=== PATIENT | female | born 1965 | race Caucasian/White ===

== ENCOUNTER 2016-03-16 19:26 | Emergency (ER) | payer MEDICAID ==
[2015-11-30 05:29] VITALS: BMI 32.6
[~2016-03-16 19:26] MED LIST: ADIPEX-P37.5 M1 PO; AMBIEN10 MG PO; CELEXA40 MG PO; HYDROCODONE-APA1 TAB PO; LISINOPRIL-HCTZ1 T13 PO; PRINZIDE 20-251 TA1 PO; PROVENTIL/2.5 MG/3 M INH; PROZAC40 MG PO; XANAX0.5 MG PO
[2016-03-16 20:24] LABS: BASOPHILS 0.2 % (0.0-2.0); EOSINOPHILS 0.3 % (0-7); HEMATOCRIT 42.2 % (36.0-48.0); HEMOGLOBIN 13.3 g/dL (12-16); IMMATURE GRANULOCYTES 0.3 % (0-5); LYMPHOCYTES 13.3 % (15-50); MCH 26.9 pg (26.0-34.0); MCHC 31.5 g/dL (31.0-37.0); MCV 85.3 fL (80.0-100.0); MEAN PLATELET VOLUME 10.2 fL (7.4-10.4); NEUTROPHILS 81.9 % (40-80); PLATELET COUNT 457 10x3/uL (130-400); RBC 4.95 10x6/uL (4.00-5.40); RDW 15.8 % (11.5-14.5); WBC 19.7 10x3/uL (4.8-10.8)
[2016-03-16 20:28] LABS: APPEARANCE CLEAR (CLEAR); BILIRUBIN NEGATIVE (NEGATIVE); COLOR YELLOW (YELLOW); GLUCOSE NEGATIVE (NEGATIVE); KETONE NEGATIVE (NEGATIVE); LEUKOCYTE ESTERASE NEGATIVE (NEGATIVE); NITRITE NEGATIVE (NEGATIVE); PROTEIN TRACE mg/dL (NEGATIVE); SPECIFIC GRAVITY 1.025 (1.005-1.020); UROBILINOGEN NORMAL (NORMAL)
[2016-03-16 20:29] LABS: BACTERIA MODERATE /hpf (NONE SEEN); MUCUS <1+ /lpf (NONE SEEN); WHITE CELLS - URINE 0-5 /hpf (0-5)
[2016-03-16 20:39] LABS: ALBUMIN 4.2 g/dL (3.4-5.0); ANION GAP 11.8 mmol/L (8-16); BILIRUBIN - TOTAL 0.47 mg/dL (0.2-1.3); CALCIUM 10.5 mg/dL (8.5-10.1); CARBON DIOXIDE 28.1 mmol/L (21.0-32.0); CREATININE - SERUM 0.9 mg/dL (0.6-1.3); POTASSIUM - SERUM 3.9 mmol/L (3.5-5.1); PROTEIN - SERUM 8.9 g/dL (6.4-8.2)
== END 2016-03-17 02:41 | disposition home or self-care (01) ==
LOC: D.ER 19:26
PROVIDERS: Emergency Medicine
DX: R10.9 Unspecified abdominal pain (principal); R11.10 Vomiting, unspecified; R19.7 Diarrhea, unspecified; F41.9 Anxiety disorder, unspecified; F31.9 Bipolar disorder, unspecified; I10 Essential (primary) hypertension

== ENCOUNTER → 2017-02-02 16:28 | Outpatient (CLI) | payer MEDICAID ==
[2015-11-30 05:29] VITALS: BMI 32.6
[~2017-02-02 16:28] MED LIST changes: +FLAGYL500 MG PO; +LEXAPRO10 MG PO
== END | disposition home or self-care (01) ==
LOC: D.LABREF 16:28
DX: M17.12 Unilateral primary osteoarthritis, left knee (principal); Z11.8 Encounter for screening for other infectious and parasitic diseases

== ENCOUNTER 2017-04-22 10:00 | Inpatient (IN) | payer MEDICAID ==
[~2017-04-22] VITALS: Ht 160 cm; Wt 72.6 kg
--- NOTE | ~2017-04-22 | OP ---
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 PROCEDURE: Left total knee arthroplasty. SURGEON: Easton Romo MD ANESTHESIA: General. INTRAOPERATIVE COMPLICATIONS: None. SUMMARY OF PATHOLOGIC FINDINGS: The patient had [id number] arthritis of the left knee and anterior cruciate ligament deficiency consistent with the preoperative diagnosis and radiographs. IMPLANTS USED: Royer triathlon total knee arthroplasty, press fit, size 3 tibial component, size 3 femoral component, size 9 polyethylene component, and no patella was done as she had no chondromalacia of the patella. OPERATIVE SUMMARY IN DETAIL: After obtaining the appropriate preoperative orthopedic surgery consent as well as anesthetic consultation, evaluation and clearance, the patient was brought to the operating room and placed on operating table in supine position. After general laryngeal mask airway was administered, tourniquet was placed about the proximal aspect of the left lower extremity. Left lower extremity was then prepped and draped in a routine sterile fashion. The leg was elevated and exsanguinated, tourniquet was inflated to 350 mmHg. Midline incision was taken down for paramedian arthrotomy. Patella was everted, distal femur was exposed. Soft tissue excision was done in the usual fashion. Intramedullary guide hole was created for distal femoral cutting. After the distal femoral cut was made, complete tibial exposure was made and the proximal tibia was cut. Measurements were taken. Chamfer cuts were made on the distal femur. Trial components corresponding to the above final implants were placed, taken through range of motion and found to be stable in all planes. Final distal femoral and proximal tibial preparations were made. The knee was irrigated of all debris. At this point, the tibial components were put in along with the femoral components. The knee was taken through a range of motion and found to be stable in all planes. Paramedian arthrotomy was closed with #2 Ethibond after a substantial amount of Vitagel was pressed into the capsule itself. After closing the capsule with #2 Ethibond Vitagel was then used in the subcutaneous tissues, which were closed with #1 Vicryl, 2-0 Vicryl, and then skin mg. Sterile dressings were applied. Tourniquet was deflated. The patient was awakened, taken to the recovery room in stable condition. All final needle and sponge counts were correct. TRANSINT:[id number] Voice Confirmation ID: [id number] DOCUMENT ID: [id number] OPERATIVE REPORT [id number] LUBA DELGADO MD, EASTON MORE at 1427 CC: [id number] DICTATION DATE: 04/27/17 0835 BOREMATIC OPERATOR: 04/27/17 1046 ADM IN [facility] [address] [id number]
[~2017-04-22 10:00] MED LIST changes: -FLAGYL500 MG PO; -LEXAPRO10 MG PO
[2017-04-22] MEDS ORDERED: LEXAPRO10 MG PO (10:19)
[2017-04-22 11:02] LABS: BASOPHILS 0.4 % (0-2); EOSINOPHILS 3.6 % (0-7); HEMATOCRIT 38.1 % (36.0-48.0); HEMOGLOBIN 11.9 g/dL (12-16); IMMATURE GRANULOCYTES 0.1 % (0-5); LYMPHOCYTES 31.7 % (15-50); MCH 24.9 pg (26.0-34.0); MCHC 31.2 g/dL (31.0-37.0); MCV 79.7 fL (80.0-100.0); MEAN PLATELET VOLUME 10.1 fL (7.4-10.4); MONOCYTES 8.5 % (2-11); NEUTROPHILS 55.7 % (40-80); PLATELET COUNT 375 10x3/uL (130-400); RBC 4.78 10x6/uL (4.00-5.40); RDW 17.3 % (11.5-14.5)
[2017-04-22 11:14] LABS: APPEARANCE CLEAR (CLEAR); COLOR YELLOW (YELLOW); SPECIFIC GRAVITY 1.015 (1.005-1.020)
[2017-04-22 11:15] LABS: BACTERIA MODERATE /hpf (NONE SEEN); BILIRUBIN NEGATIVE (NEGATIVE); EPITHELIAL CELLS 0-5 /hpf (0-5); GLUCOSE NEGATIVE (NEGATIVE); KETONE NEGATIVE (NEGATIVE); NITRITE NEGATIVE (NEGATIVE); PROTEIN NEGATIVE (NEGATIVE); RED CELLS - URINE 0-5 /hpf (0-5); UROBILINOGEN NORMAL (NORMAL); WHITE CELLS - URINE RARE /hpf (0-5)
[2017-04-22 11:16] LABS: MUCUS <1+ /lpf (NONE SEEN)
[2017-04-22 11:28] LABS: CALC OSMOLALITY 276 mosm/kg (275-300); CALCIUM 9.1 mg/dL (8.5-10.1); CARBON DIOXIDE 30.2 mmol/L (21.0-32.0); CHLORIDE - SERUM 101 mmol/L (98-107); CREATININE - SERUM 0.7 mg/dL (0.6-1.3); GLUCOSE 71 mg/dL (74-106); POTASSIUM - SERUM 3.7 mmol/L (3.5-5.1); SODIUM 139 mmol/L (136-145); UREA NITROGEN 14 mg/dL (7-18); eGFR NON AFRICAN AMERICAN > 90 mL/min (90-120)
[2017-04-22 11:30] LABS: APTT 25.5 SECONDS (22.8-39.4); INR 0.96 (0.85-1.17); PROTIME 12.4 SECONDS (11.6-15.0)
[2017-04-27] VITALS (10 sets, daily range): BP systolic 101–154; BP diastolic 52–93; BMI 31.9; BMI 28.4
[2017-04-27] MEDS ORDERED: FLAGYL500 MG PO (06:22)
[2017-04-28 04:00] VITALS: BP 114/68
[2017-04-28 05:21] LABS: BASOPHILS 0.1 % (0-2); EOSINOPHILS 0 % (0-7); HEMOGLOBIN 10.4 g/dL (12-16); IMMATURE GRANULOCYTES 0.3 % (0-5); LYMPHOCYTES 11.7 % (15-50); MCH 24.6 pg (26.0-34.0); MCHC 30.6 g/dL (31.0-37.0); MCV 80.6 fL (80.0-100.0); MEAN PLATELET VOLUME 10.2 fL (7.4-10.4); MONOCYTES 9.1 % (2-11); NEUTROPHILS 78.8 % (40-80); PLATELET COUNT 352 10x3/uL (130-400); RBC 4.22 10x6/uL (4.00-5.40); RDW 17.6 % (11.5-14.5); WBC 14.1 10x3/uL (4.8-10.8)
[2017-04-28 05:35] LABS: CALC OSMOLALITY 277 mosm/kg (275-300); CALCIUM 8.3 mg/dL (8.5-10.1); CARBON DIOXIDE 31.6 mmol/L (21.0-32.0); CHLORIDE - SERUM 101 mmol/L (98-107); CREATININE - SERUM 0.8 mg/dL (0.6-1.3); GLUCOSE 92 mg/dL (74-106); POTASSIUM - SERUM 3.6 mmol/L (3.5-5.1); SODIUM 140 mmol/L (136-145); UREA NITROGEN 11 mg/dL (7-18); eGFR NON AFRICAN AMERICAN 81 mL/min (90-120)
[2017-04-28 08:56] VITALS: BP 120/60
[2017-04-28 10:50] VITALS: Ht 160 cm; Wt 72.6 kg
[2017-04-28 12:46] VITALS: BP 122/68
[2017-04-28 16:12] VITALS: BP 136/72
[2017-04-28 20:00] VITALS: BP 158/90
[2017-04-29 04:00] VITALS: BP 98/52
[2017-04-29 04:31] LABS: HEMOGLOBIN 9.5 g/dL (12-16); MCH 24.7 pg (26.0-34.0); MCHC 30.6 g/dL (31.0-37.0); MCV 80.7 fL (80.0-100.0); MEAN PLATELET VOLUME 9.3 fL (7.4-10.4); RBC 3.84 10x6/uL (4.00-5.40)
[2017-04-29 05:01] LABS: WBC 6.6 10x3/uL (4.8-10.8)
[2017-04-29 08:28] VITALS: BP 114/62
[2017-04-29 12:39] VITALS: BP 95/41
[2017-04-29] MEDS ORDERED: ELIQUIS2.5 MG PO (12:57)
[2017-04-29] MEDS ORDERED: PERCOCET 10/3251 TA1 PO (12:57)
[2017-04-29] MEDS ORDERED: ZOFRAN4 MG PO (15:33)
== END 2017-04-29 15:58 | disposition home or self-care (01) | DRG 470 ==
LOC: D.MS 04-27 05:13 → D.SDCHOLD 04-27 05:13 → D.MS 04-27 10:11 → D.SDCHOLD 04-27 13:07 → D.MS 04-27 13:07
PROVIDERS: Internal Medicine Nephrology; Orthopaedic Surgery
PROC: 0SRD0JZ Replacement of Left Knee Joint with Synthetic Substitute, Open Approach (ICD-10-PCS; principal; 2017-04-27 07:30)
DX: M17.12 Unilateral primary osteoarthritis, left knee (principal); I10 Essential (primary) hypertension; F43.12 Post-traumatic stress disorder, chronic

== ENCOUNTER 2017-11-01 15:25 | Emergency (ER) | payer MEDICAID ==
[~2017-11-01] VITALS: Ht 160 cm; Wt 77.7 kg
[~2017-11-01 15:25] MED LIST changes: +ELIQUIS2.5 MG PO; +FLAGYL500 MG PO; +LEXAPRO10 MG PO; +PERCOCET 10/3251 TA1 PO; +ZOFRAN4 MG PO
[2017-11-01 15:34] VITALS: Ht 160 cm; Wt 77.7 kg
[2017-11-01] MEDS ORDERED: SEROQUEL50 MG PO (15:37)
[2017-11-01 16:37] LABS: BASOPHILS 0.5 % (0-2); EOSINOPHILS 3.3 % (0-7); HEMATOCRIT 36.4 % (36.0-48.0); HEMOGLOBIN 11.6 g/dL (12-16); IMMATURE GRANULOCYTES 0.1 % (0-5); LYMPHOCYTES 39.2 % (15-50); MCH 25.7 pg (26.0-34.0); MCHC 31.9 g/dL (31.0-37.0); MCV 80.5 fL (80.0-100.0); MONOCYTES 5.2 % (2-11); NEUTROPHILS 51.7 % (40-80); PLATELET COUNT 290 10x3/uL (130-400); RBC 4.52 10x6/uL (4.00-5.40); RDW 18.2 % (11.5-14.5); WBC 7.5 10x3/uL (4.8-10.8)
[2017-11-01 16:50] LABS: ALBUMIN 3.2 g/dL (3.4-5.0); ALKALINE PHOSPHATASE 58 U/L (46-116); ALT (SGPT) 13 U/L (10-68); BILIRUBIN - TOTAL 0.12 mg/dL (0.2-1.3); CALC OSMOLALITY 283 mosm/kg (275-300); CALCIUM 8.7 mg/dL (8.5-10.1); CARBON DIOXIDE 32.4 mmol/L (21.0-32.0); CHLORIDE - SERUM 104 mmol/L (98-107); CREATININE - SERUM 0.8 mg/dL (0.6-1.3); GLUCOSE 92 mg/dL (74-106); POTASSIUM - SERUM 3.9 mmol/L (3.5-5.1); PROTEIN - SERUM 7.2 g/dL (6.4-8.2); SODIUM 141 mmol/L (136-145); UREA NITROGEN 22 mg/dL (7-18); eGFR NON AFRICAN AMERICAN 80 mL/min (90-120)
[2017-11-01 17:02] LABS: THYROID STIMULATING HORMONE 0.82 uIU/mL (0.36-3.74); TROPONIN-I 0.048 ng/mL (0.000-0.060)
[2017-11-01 17:39] VITALS: BP 121/79
== END 2017-11-01 18:32 | disposition home or self-care (01) ==
LOC: D.ER 15:25
PROVIDERS: Emergency Medicine
DX: R00.2 Palpitations (principal); D64.9 Anemia, unspecified; R42 Dizziness and giddiness; R06.02 Shortness of breath; F17.200 Nicotine dependence, unspecified, uncomplicated

== ENCOUNTER → 2017-12-15 14:38 | Outpatient (CLI) | payer MEDICAID ==
[2017-11-01 15:34] VITALS: BMI 30.3
[~2017-12-15 14:38] MED LIST changes: +SEROQUEL50 MG PO
== END | disposition home or self-care (01) ==
LOC: D.MRI 12-11 17:00
DX: M25.571 Pain in right ankle and joints of right foot (principal)

== ENCOUNTER 2019-06-01 09:15 | Emergency (ER) | payer MEDICAID ==
[~2019-06-01] VITALS: Ht 160 cm; Wt 90.9 kg
[2019-06-01 09:17] VITALS: Ht 160 cm; Wt 90.9 kg
[2019-06-01] MEDS ORDERED: KEFLEX500 MG PO (09:59)
[2019-06-01] MEDS ORDERED: HYDROCODON-ACE1 EAC2 PO (09:59)
[2019-06-01 10:01] LABS: CALC OSMOLALITY 280 mosm/kg (275-300); CALCIUM 8.4 mg/dL (8.5-10.1); CARBON DIOXIDE 26.6 mmol/L (21.0-32.0); CHLORIDE - SERUM 104 mmol/L (98-107); CREATININE - SERUM 0.8 mg/dL (0.6-1.3); GLUCOSE 208 mg/dL (74-106); POTASSIUM - SERUM 3.6 mmol/L (3.5-5.1); SODIUM 137 mmol/L (136-145); UREA NITROGEN 15 mg/dL (7-18); eGFR NON AFRICAN AMERICAN 80 mL/min (90-120)
[2019-06-01 10:15] LABS: ALBUMIN 3.3 g/dL (3.4-5.0); ALKALINE PHOSPHATASE 135 U/L (30-120); ALT (SGPT) 96 U/L (10-68); BILIRUBIN - TOTAL 0.52 mg/dL (0.2-1.3); CKMB 0.5 U/L (0.0-3.6); CREATINE KINASE 46 UL (21-215); MAGNESIUM - SERUM 1.6 mg/dL (1.8-2.4); PROTEIN - SERUM 7.3 g/dL (6.4-8.2); TROPONIN-I < 0.017 ng/mL (0.000-0.060)
[2019-06-01 10:18] LABS: APTT 24.5 SECONDS (22.8-39.4); INR 0.9 (0.85-1.17); PROTIME 12.1 SECONDS (11.6-15.0)
[2019-06-01 10:35] VITALS: BP 138/68
[2019-06-01 10:38] LABS: BASOPHILS 0.4 % (0-2); EOSINOPHILS 1.5 % (0-7); HEMATOCRIT 37.2 % (36.0-48.0); HEMOGLOBIN 11.7 g/dL (12-16); IMMATURE GRANULOCYTES 0.4 % (0-5); LYMPHOCYTES 17.2 % (15-50); MCH 28.3 pg (26.0-34.0); MCHC 31.5 g/dL (31.0-37.0); MCV 90.1 fL (80.0-100.0); MEAN PLATELET VOLUME 10.3 fL (7.4-10.4); MONOCYTES 4.4 % (2-11); NEUTROPHILS 76.1 % (40-80); PLATELET COUNT 288 10x3/uL (130-400); RBC 4.13 10x6/uL (4.00-5.40); WBC 7.8 10x3/uL (4.8-10.8)
== END 2019-06-01 12:33 | disposition home or self-care (01) ==
LOC: D.ER 09:15
PROVIDERS: Emergency Medicine
DX: J06.9 Acute upper respiratory infection, unspecified (principal); R07.89 Other chest pain; R10.9 Unspecified abdominal pain; I10 Essential (primary) hypertension; Z72.0 Tobacco use

== ENCOUNTER 2020-06-13 12:53 | Observation (INO) | payer BC ==
[~2020-06-13] VITALS: Ht 160 cm; Wt 93.2 kg
[~2020-06-13 12:53] MED LIST changes: +BUSPAR 15 MG TA15 MG PO; +HYDROCODON-ACE1 EA10 PO; +HYDROCODON-ACE1 EAC2 PO; +KEFLEX500 MG PO; +LEXAPRO20 MG PO; +LISINOPRIL-HCT1 EAC4 PO; +RESTORIL15 MG PO; +SEROQUEL XR300 MG PO; +XANAX1 MG PO
[2020-06-13 13:30] LABS: BASOPHILS 0.5 % (0-2); HEMOGLOBIN 14.7 g/dL (12-16); IMMATURE GRANULOCYTES 0.4 % (0-5); LYMPHOCYTE ABS# 2.91 10x3/uL (1.18-3.74); LYMPHOCYTES 29.4 % (15-50); MCH 29.8 pg (26.0-34.0); MCHC 32.7 g/dL (31.0-37.0); MCV 91.3 fL (80.0-100.0); MEAN PLATELET VOLUME 9.9 fL (7.4-10.4); MONOCYTES 7.9 % (2-11); NEUTROPHIL ABS# 5.93 10x3/uL (1.56-6.13); NEUTROPHILS 59.8 % (40-80); PLATELET COUNT 298 10x3/uL (130-400); RBC 4.93 10x6/uL (4.00-5.40); RDW 14.6 % (11.5-14.5); WBC 9.9 10x3/uL (4.8-10.8)
[2020-06-13 13:36] LABS: CALC OSMOLALITY 278 mosm/kg (275-300); CALCIUM 9.5 mg/dL (8.5-10.1); CHLORIDE - SERUM 105 mmol/L (98-107); CREATININE - SERUM 0.7 mg/dL (0.6-1.3); GLUCOSE 124 mg/dL (74-106); SODIUM 138 mmol/L (136-145); UREA NITROGEN 17 mg/dL (7-18); eGFR NON AFRICAN AMERICAN > 90 mL/min (90-120)
[2020-06-13 13:41] VITALS: BP 107/74
[2020-06-13 13:54] LABS: ALBUMIN 3.3 g/dL (3.4-5.0); ALKALINE PHOSPHATASE 65 U/L (30-120); ALT (SGPT) 32 U/L (10-68); BILIRUBIN - TOTAL 0.32 mg/dL (0.2-1.3); CKMB 0.8 U/L (0.0-3.6); CREATINE KINASE 62 UL (21-215); PROTEIN - SERUM 7.2 g/dL (6.4-8.2); TROPONIN-I 0.019 ng/mL (0.000-0.060)
[2020-06-13 14:19] LABS: APTT 25.3 SECONDS (22.8-39.4); INR 1.06 (0.85-1.17); PROTIME 12.8 SECONDS (11.6-15.0)
[2020-06-13] MEDS ORDERED: ULTRAM50 MG PO (15:45)
[2020-06-13] MEDS ORDERED: LATUDA40 MG PO (15:46)
[2020-06-13] MEDS ORDERED: CLONIDINE HCL0.2 MG PO (15:48)
[2020-06-13] MEDS ORDERED: AMBIEN10 MG PO (15:49)
[2020-06-13] MEDS ORDERED: PHENERGAN25 M1 PO (15:51)
[2020-06-13 16:27] VITALS: BP 122/60
--- NOTE | 2020-06-13 16:42 | NUR ---
ONE TAB TYLENOL WASTED AFTER DROPPING ON FLOOR. PT REFUSED REPLACEMENT TAB.
[2020-06-13 17:01] VITALS: BP 167/82
--- NOTE | 2020-06-13 17:02 | NUR ---
VS NOW INCORRECT. FOR ANOTHER PT.
[2020-06-13 17:26] VITALS: BP 122/60; Ht 160 cm; Wt 93.2 kg
[2020-06-13 18:15] VITALS: BP 111/61
[2020-06-13 19:22] LABS: CKMB 0.7 U/L (0.0-3.6); CREATINE KINASE 60 UL (21-215); TROPONIN-I 0.021 ng/mL (0.000-0.060)
[2020-06-13 22:37] VITALS: BP 91/30
[2020-06-14 01:25] LABS: CKMB 0.7 U/L (0.0-3.6); CREATINE KINASE 58 UL (21-215); TROPONIN-I 0.017 ng/mL (0.000-0.060)
[2020-06-14 03:00] VITALS: BP 107/55
[2020-06-14 06:50] LABS: BASOPHILS 0.8 % (0-2); EOSINOPHILS 3.7 % (0-7); HEMATOCRIT 41.5 % (36.0-48.0); IMMATURE GRANULOCYTES 0.3 % (0-5); LYMPHOCYTE ABS# 3.03 10x3/uL (1.18-3.74); LYMPHOCYTES 38.2 % (15-50); MCH 29.3 pg (26.0-34.0); MCHC 31.3 g/dL (31.0-37.0); MEAN PLATELET VOLUME 10.6 fL (7.4-10.4); MONOCYTES 9.2 % (2-11); NEUTROPHIL ABS# 3.81 10x3/uL (1.56-6.13); NEUTROPHILS 47.8 % (40-80); PLATELET COUNT 282 10x3/uL (130-400); RBC 4.43 10x6/uL (4.00-5.40); RDW 14.8 % (11.5-14.5); WBC 7.9 10x3/uL (4.8-10.8)
[2020-06-14 06:57] LABS: MCV 93.7 fL (80.0-100.0)
[2020-06-14 07:05] LABS: ALBUMIN 3.1 g/dL (3.4-5.0); ALKALINE PHOSPHATASE 51 U/L (30-120); ALT (SGPT) 30 U/L (10-68); BILIRUBIN - TOTAL 0.18 mg/dL (0.2-1.3); CALCIUM 9.2 mg/dL (8.5-10.1); CARBON DIOXIDE 29.8 mmol/L (21.0-32.0); CHLORIDE - SERUM 103 mmol/L (98-107); CKMB 0.7 U/L (0.0-3.6); CREATINE KINASE 46 UL (21-215); CREATININE - SERUM 0.7 mg/dL (0.6-1.3); GLUCOSE 137 mg/dL (74-106); PROTEIN - SERUM 6.7 g/dL (6.4-8.2); SODIUM 139 mmol/L (136-145); eGFR NON AFRICAN AMERICAN > 90 mL/min (90-120)
[2020-06-14 07:07] LABS: CALC OSMOLALITY 282 mosm/kg (275-300); TROPONIN-I < 0.017 ng/mL (0.000-0.060); UREA NITROGEN 22 mg/dL (7-18)
[2020-06-14 07:56] VITALS: BP 107/65
[2020-06-14 15:22] VITALS: BP 110/66
[2020-06-14] MEDS ORDERED: LISINOPRIL10 MG PO (18:45)
[2020-06-14] MEDS ORDERED: HCTZ25 MG PO (18:46)
--- NOTE | 2020-06-14 19:15 | NUR ---
PT DISCHARGED TO HOME AT THIS TIME. PER PERSONAL VEHICLE WITH .
--- NOTE | 2020-06-15 09:58 | ST ---
PATIENT:LUBA DELGADO MEDICAL RECORD: [id number] SEX: F [facility] ORDER #: ADMISSION DATE: 06/13/20 AGE OF PATIENT: 54 REFERRING PHYSICIAN: INTERPRETING PHYSICIAN: JUAN RIVERA MD DATE OF SERVICE: 06/14/2020 NUCLEAR STRESS TEST GATED: Gated is just normal with normal wall motion, normal wall thickening, calculated EF 81%. SPECT IMAGING: SPECT imaging was performed. 1. Short axis view: Short axis view shows good uptake along the anterior wall, lateral wall and inferior wall. 2. Horizontal axis: Horizontal axis confirms good uptake along the anterior wall and inferior wall. 3. Vertical axis: Vertical axis shows good uptake along the lateral wall and septum. FINAL IMPRESSION: 1. Normal gated, normal wall motion, normal EF of 81%. 2. Normal SPECT imaging. FINAL RECOMMENDATION: This scan is felt to be low risk for any significant ongoing coronary ischemia. LV function remains normal. TRANSINT:[id number] Voice Confirmation ID: [id number] DOCUMENT ID: [id number] JUAN RIVERA MD at 0958 CC: [id number] DICTATION DATE: 06/14/20 1409 COTTON SEED CULLER: 06/14/20 2105 DIS IN 06/14/20 [id number] [place] [address]
== END 2020-06-14 19:15 | disposition home or self-care (01) ==
LOC: D.ER 12:53 → OBSVTIME 14:54 → D.M2 14:54
PROVIDERS: Family Medicine; ADMIT Legal Medicine; ATTEND Legal Medicine
DX: R07.9 Chest pain, unspecified (principal); I10 Essential (primary) hypertension; J45.909 Unspecified asthma, uncomplicated; Z72.0 Tobacco use; F41.9 Anxiety disorder, unspecified; F32.9 Major depressive disorder, single episode, unspecified; R42 Dizziness and giddiness; R00.2 Palpitations; G47.00 Insomnia, unspecified; F43.10 Post-traumatic stress disorder, unspecified

== ENCOUNTER 2020-06-26 17:31 | Observation (INO) | payer MEDICAID ==
[~2020-06-26] VITALS: Ht 160 cm; Wt 88.5 kg
--- NOTE | ~2020-06-26 | EC ---
PATIENT:LUBA DELGADO DATE OF SERVICE: 06/26/20 SEX: F MEDICAL RECORD: [id number] DATE OF : [birth year] LOCATION:[facility]. [facility] AGE OF PATIENT: 54 ADMISSION DATE: 06/26/20 REFERRING PHYSICIAN: INTERPRETING PHYSICIAN: JUAN RIVERA MD ECHOCARDIOGRAM REPORT ECHO CHARGES 4 ECHO COMPLETE Date: 06/27/20 CLINICAL DIAGNOSIS: CP ECHOCARDIOGRAPHIC MEASUREMENTS (adult normal given) AC root (d.<3.7cm) 3.1 cm LV Septum d (<1.2 cm> 0.9 cm Valve Excursion 1.9 cm LV Septum (systole) 1.2 cm Left Atria (s.<4.0cm> 4.0 cm LVPW d(<1.2cm) 0.7 cm RV (d.<2.3cm) 3.4 cm LVPW (sytole) 0.9 cm LV diastole(<5.6CM) 6.5 cm MV E-F(>70mm/sec) cm LV systole 5.1 cm LVOT Diameter 1.7 cm MV exc.(>10mm) 0.9 cm Est.ejection fraction (50-75%) % DOPPLER: LVIT cm/sec A 63 cm/sec E 69 cm/sec LA cm/sec RVSP 27 mmHg LVOT 113 cm/sec AOP1/2T m/s Asc. Ao 133 cm/sec RVOT 80 cm/sec RA cm/sec PA 88 cm/sec AV Gradient Peak 7.0 mmHg AV Mean 4.0 mmHg AV Area 2.0 cm MV Gradient Peak 3.6 mmHg MV Mean 1.7 mmHg MV Area cm COMMENTS: Acid Bleacher: Annmarie MITCHELL Sap Portal Architect: 3 Dr. Cho TAPE# Pericardial Effusion N DATE OF SERVICE: Adequate 2D, color-flow imaging, spectral Doppler, and M-Mode FINDINGS: No LVH. LV internal dimension is normal. Wall motion is normal. EF is greater than or equal to 55%. Aortic valve is tricuspid. No evidence of stenosis by Doppler interrogation. Left atrium is normal at 4.0 cm. Mitral valve shows no prolapse. Trace MR. Right side is grossly normal. Trace TR. TRANSINT:[id number] Voice Confirmation ID: [id number] DOCUMENT ID: [id number] ECHOCARDIOGRAM REPORT [id number] LUBA DELGADO JUAN RIVERA MD CC: [id number] DICTATION DATE: 06/27/20 1639 MICROFILM TECHNICIAN: 06/27/20 2350 DIS IN 06/28/20 [facility] [address] [id number]
[~2020-06-26 17:31] MED LIST changes: +CLONIDINE HCL0.2 MG PO; +HCTZ25 MG PO; +LATUDA40 MG PO; +LISINOPRIL10 MG PO; +PHENERGAN25 M1 PO; +ULTRAM50 MG PO
[2020-06-26 18:12] LABS: BASOPHILS 0.3 % (0-2); EOSINOPHILS 0.8 % (0-7); HEMATOCRIT 41.4 % (36.0-48.0); HEMOGLOBIN 13.4 g/dL (12-16); IMMATURE GRANULOCYTES 0.3 % (0-5); LYMPHOCYTE ABS# 1.56 10x3/uL (1.18-3.74); LYMPHOCYTES 10.5 % (15-50); MCH 29.9 pg (26.0-34.0); MCHC 32.4 g/dL (31.0-37.0); MCV 92.4 fL (80.0-100.0); MEAN PLATELET VOLUME 10.7 fL (7.4-10.4); MONOCYTES 4.6 % (2-11); NEUTROPHIL ABS# 12.47 10x3/uL (1.56-6.13); NEUTROPHILS 83.5 % (40-80); PLATELET COUNT 290 10x3/uL (130-400); RBC 4.48 10x6/uL (4.00-5.40); RDW 14.3 % (11.5-14.5); WBC 14.9 10x3/uL (4.8-10.8)
[2020-06-26 18:13] LABS: CALC OSMOLALITY 286 mosm/kg (275-300); CALCIUM 9.6 mg/dL (8.5-10.1); CARBON DIOXIDE 30.8 mmol/L (21.0-32.0); CHLORIDE - SERUM 99 mmol/L (98-107); CREATININE - SERUM 0.8 mg/dL (0.6-1.3); GLUCOSE 224 mg/dL (74-106); POTASSIUM - SERUM 3.8 mmol/L (3.5-5.1); SODIUM 139 mmol/L (136-145); UREA NITROGEN 18 mg/dL (7-18); eGFR NON AFRICAN AMERICAN 78 mL/min (90-120)
[2020-06-26 18:19] LABS: ALBUMIN 3.6 g/dL (3.4-5.0); ALKALINE PHOSPHATASE 63 U/L (30-120); ALT (SGPT) 32 U/L (10-68); BILIRUBIN - TOTAL 0.16 mg/dL (0.2-1.3); PROTEIN - SERUM 7.7 g/dL (6.4-8.2)
[2020-06-26 18:49] LABS: CREATINE KINASE 60 UL (21-215); MAGNESIUM - SERUM 1.7 mg/dL (1.8-2.4); PRO BNP 22 pg/mL (0-125); TROPONIN-I < 0.017 ng/mL (0.000-0.060)
[2020-06-26 19:00] VITALS: BP 131/63
--- NOTE | 2020-06-26 19:30 | NUR ---
REPORT GIVEN TO JOAQUIN Kiran RN
--- NOTE | 2020-06-26 20:00 | NUR ---
PT WITH WATER AND SANDWICH BOX
[2020-06-26 21:00] VITALS: BP 115/63
[2020-06-27 01:10] LABS: CKMB 0.6 U/L (0.0-3.6); CREATINE KINASE 47 UL (21-215); TROPONIN-I < 0.017 ng/mL (0.000-0.060)
[2020-06-27 01:21] VITALS: BP 120/54; BMI 34.6
--- NOTE | 2020-06-27 01:39 | NUR ---
REPORT RECEIVED. PT A&O, LAYING IN BED WATCHING TV. NO S/S OF DISTRESS OBSERVED. RR EVEN & UNLABORED ON RA. NO CHEST PAIN VERBALIZED AT THIS TIME. 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 BED LOCKED AND LOWERED, CL IN REACH. ASSESSMENT COMPLETED. WILL CONT POC.
[2020-06-27 05:03] VITALS: BP 113/57
[2020-06-27 06:47] LABS: BASOPHILS 0.3 % (0-2); EOSINOPHILS 1.9 % (0-7); HEMATOCRIT 38.6 % (36.0-48.0); HEMOGLOBIN 12.2 g/dL (12-16); IMMATURE GRANULOCYTES 0.2 % (0-5); LYMPHOCYTE ABS# 2.58 10x3/uL (1.18-3.74); LYMPHOCYTES 28.1 % (15-50); MCH 29.3 pg (26.0-34.0); MCHC 31.6 g/dL (31.0-37.0); MCV 92.6 fL (80.0-100.0); MEAN PLATELET VOLUME 10.7 fL (7.4-10.4); MONOCYTES 6.9 % (2-11); NEUTROPHIL ABS# 5.75 10x3/uL (1.56-6.13); NEUTROPHILS 62.6 % (40-80); PLATELET COUNT 274 10x3/uL (130-400); RBC 4.17 10x6/uL (4.00-5.40); RDW 14.6 % (11.5-14.5)
[2020-06-27 06:53] LABS: CALC OSMOLALITY 283 mosm/kg (275-300); CALCIUM 9.1 mg/dL (8.5-10.1); CARBON DIOXIDE 31.6 mmol/L (21.0-32.0); CHLORIDE - SERUM 104 mmol/L (98-107); CHOL - HDL RATIO 3.7 ratio (2.3-4.1); CHOLESTEROL, TOTAL 164 mg/dL (0-200); CKMB 0.5 U/L (0.0-3.6); CREATINE KINASE 43 UL (21-215); CREATININE - SERUM 0.7 mg/dL (0.6-1.3); HDL CHOLESTEROL 44 mg/dL (32-96); LDL CHOLESTEROL 103 mg/dL (0-100); LDL-HDL RATIO 2.3 ratio (1.5-3.5); MAGNESIUM - SERUM 1.8 mg/dL (1.8-2.4); PHOSPHOROUS 3.6 mg/dL (2.5-4.9); POTASSIUM - SERUM 3.9 mmol/L (3.5-5.1); SODIUM 141 mmol/L (136-145); TRIGLYCERIDE 87 mg/dL (30-200); TROPONIN-I < 0.017 ng/mL (0.000-0.060); UREA NITROGEN 18 mg/dL (7-18); WBC 9.2 10x3/uL (4.8-10.8); eGFR NON AFRICAN AMERICAN > 90 mL/min (90-120)
[2020-06-27 06:54] LABS: GLUCOSE 119 mg/dL (74-106)
[2020-06-27 07:08] LABS: APTT 25.4 SECONDS (22.8-39.4); INR 1.02 (0.85-1.17); PROTIME 12.4 SECONDS (11.6-15.0)
[2020-06-27 08:04] VITALS: BP 92/48
--- NOTE | 2020-06-27 08:21 | NUR ---
AM MED GIVEN, MALORIE HELD D/T CARDIOLOGY CONSULT. PT REVIEWED HOME MEDICATIONS WITH NURSE AT THIS TIME AND PLACED IN CHART. NO FURTHER NEEDS VOICED AT THIS TIME. CLWR.
--- NOTE | 2020-06-27 09:44 | NUR ---
BREAKFAST TRAY GIVEN PER NEW DIETARY ORDER. PT AWARE OF ECHO, CONSENT SIGNED FOR RECORDS TO BE RECEIVED FROM CARDIOLOGY. NO NEEDS VOICED. CLWR.
[2020-06-27 10:43] LABS: BILIRUBIN NEGATIVE (NEGATIVE); KETONE NEGATIVE (NEGATIVE); NITRITE NEGATIVE (NEGATIVE); UROBILINOGEN NORMAL mg/dL (< 2)
[2020-06-27 10:44] LABS: BACTERIA MANY HPF (NONE SEEN); WHITE CELLS - URINE 25-50 HPF (0-4)
[2020-06-27 11:47] VITALS: BP 148/83
[2020-06-27 12:10] LABS: CKMB 0.7 U/L (0.0-3.6); CREATINE KINASE 51 UL (21-215); TROPONIN-I < 0.017 ng/mL (0.000-0.060)
[2020-06-27 12:34] VITALS: Ht 160 cm; Wt 88.5 kg
--- NOTE | 2020-06-27 16:42 | NUR ---
PT C/O LEG PAIN, OFFERED PRN MEDICATION TORADOL ON EMAR. PT REFUSED STATING IT DID NOT HELP. CALLED AND SPOKE WITH DAWSON ELIZONDO AND RECEIVED TELEPHONE ORDER FOR TRAMADOL 50MG Q6H, WHICH IS HER HOME DOSE MEDICATION. NOTIFIED PT OF NEW ORDER. PT STATES "50MG?" AND NURSE CONFIRMED DOSE. PT STATES "GO AHEAD AND BRING ME THE 50 AND ILL JUST TAKE 2 OR 3 OF MY OWN IN MY PURSE," DAUGHTER AT BEDSIDE TOLD PT SHE CANNOT DO THAT AND NURSE EDUCATED PT ABOUT NOT TAKING HER OWN MEDICATION. NURSE ASKS IF HER PURSE CAN BE REMOVED FROM ROOM, PT REFUSED. PAGED DAWSON TO NOTIFY OF PT RESPONSE.
--- NOTE | 2020-06-27 17:21 | NUR ---
SPOKE WITH DAWSON REGARDING PT PURSE AND MEDICATION.
--- NOTE | 2020-06-27 17:25 | NUR ---
LANI FITZGERALD SPOKE WITH NURSE REGARDING HOME MEDICATIONS IN [facility] [place]. LANI FITZGERALD SPOKE WITH PT TO HAVE HOME MEDICATIONS TAKEN HOME WITH HER BROTHER WHO IS VISITING AT BEDSIDE.
--- NOTE | 2020-06-27 17:40 | NUR ---
HOME MEDICATIONS TAKEN TO PHARMACY AND LIST PLACED IN FRONT OF CHART. PT SIGNED PAPERWORK. NO FURTHER NEEDS OR QUESTIONS.
[2020-06-27 20:00] VITALS: BP 163/83
--- NOTE | 2020-06-27 21:36 | NUR ---
REPORT RECEIVED. PT A&O, LAYING IN BED WATCHING TV. NO S/S OF DISTRESS OBSERVED. RR EVEN & UNLABORED ON RA. BED LOCKED AND LOWERED, CL IN REACH. ASSESSMENT COMPLETE. WILL CONT POC.
[2020-06-28 06:19] LABS: BASOPHILS 0.5 % (0-2); EOSINOPHILS 2.5 % (0-7); HEMATOCRIT 39.1 % (36.0-48.0); HEMOGLOBIN 12.4 g/dL (12-16); IMMATURE GRANULOCYTES 0.3 % (0-5); LYMPHOCYTE ABS# 2.26 10x3/uL (1.18-3.74); LYMPHOCYTES 37.5 % (15-50); MCH 29.5 pg (26.0-34.0); MCHC 31.7 g/dL (31.0-37.0); MCV 93.1 fL (80.0-100.0); MEAN PLATELET VOLUME 10.9 fL (7.4-10.4); NEUTROPHIL ABS# 3.09 10x3/uL (1.56-6.13); NEUTROPHILS 51.2 % (40-80); PLATELET COUNT 275 10x3/uL (130-400); RDW 14.3 % (11.5-14.5)
[2020-06-28 06:24] LABS: CALC OSMOLALITY 283 mosm/kg (275-300); CALCIUM 8.6 mg/dL (8.5-10.1); CARBON DIOXIDE 31.9 mmol/L (21.0-32.0); CHLORIDE - SERUM 105 mmol/L (98-107); CREATININE - SERUM 0.7 mg/dL (0.6-1.3); GLUCOSE 111 mg/dL (74-106); MAGNESIUM - SERUM 1.7 mg/dL (1.8-2.4); PHOSPHOROUS 3.5 mg/dL (2.5-4.9); POTASSIUM - SERUM 4.2 mmol/L (3.5-5.1); SODIUM 141 mmol/L (136-145); UREA NITROGEN 17 mg/dL (7-18); eGFR NON AFRICAN AMERICAN > 90 mL/min (90-120)
[2020-06-28 08:23] VITALS: BP 144/71
[2020-06-28] MEDS ORDERED: NICODERM CQ1 EAC3 TRANSDERM (11:43)
[2020-06-28] MEDS ORDERED: PROTONIX40 MG PO (11:44)
[2020-06-28] MEDS ORDERED: FLORAJEN3 CAPS460 MG PO (11:44)
[2020-06-28] MEDS ORDERED: MACROBID100 MG PO (11:45)
[2020-06-28] MEDS ORDERED: CARAFATE1 G PO (11:45)
--- NOTE | 2020-06-28 13:14 | NUR ---
PT'S DISCHARGE INSTRUCTIONS REVIEWED AND SIGNED. IV OUT AND TELEMETRY REMOVED. MEDS RETURNED FROM PHARMACY LOCK UP. WALKED TO ER FOR DISCHARGE.
== END 2020-06-28 13:16 | disposition home or self-care (01) ==
LOC: D.M2 → D.ER 17:31 → EDBD 17:31 → OBSVTIME 21:10 → D.M2 21:10
PROVIDERS: Emergency Medicine; ADMIT Family Medicine; ATTEND Family Medicine
DX: E11.65 Type 2 diabetes mellitus with hyperglycemia (principal); I20.9 Angina pectoris, unspecified; J44.9 Chronic obstructive pulmonary disease, unspecified; I10 Essential (primary) hypertension; R07.9 Chest pain, unspecified; F17.200 Nicotine dependence, unspecified, uncomplicated; F31.9 Bipolar disorder, unspecified; F43.10 Post-traumatic stress disorder, unspecified

== ENCOUNTER → 2020-08-14 15:30 | Outpatient (CLI) | payer BC ==
[2020-06-28 16:36] VITALS: BMI 34.5
[~2020-08-14 15:30] MED LIST changes: +CARAFATE1 G PO; +FLORAJEN3 CAPS460 MG PO; +MACROBID100 MG PO; +NICODERM CQ1 EAC3 TRANSDERM; +PROTONIX40 MG PO
== END | disposition home or self-care (01) ==
LOC: D.MRI 15:30
PROVIDERS: ATTEND Clinical Nurse Specialist Family Health
DX: M25.511 Pain in right shoulder (principal)